=== PATIENT | male | born 1975 | race Caucasian/White ===

== ENCOUNTER 2019-12-21 14:07 | Emergency (ER) | payer OTHER ==
[2019-12-21] MEDS ORDERED: SODIUM CHLORIDE 0.9% 2,100 ML IV ONE (14:21)
[2019-12-21] MEDS ORDERED: BACITRACIN 0.9 GM PACKET OINTMENT TP ONE (14:30)
[2019-12-21] MEDS ORDERED: 0.9% SODIUM CHLORIDE 10 ML SYRINGE IVP PRN (14:30)
[2019-12-21] MEDS: PERTUSS(ACELL),DIPH,TET VAC/PF 0.5 ML VIAL IM ONE ×2 (14:42→15:12)
[2019-12-21 14:56] VITALS: BP 137/80
[2019-12-21] MEDS ORDERED: ACETAMINOPHEN 500 MG TABLET PO ONE (15:00)
[2019-12-21 15:40] LABS: BASOPHILS % (AUTO) 0.4 % (0.0-2.0); EOSINOPHILS % (AUTO) 0.4 % (1.0-6.0); HEMATOCRIT 44.2 % (41-53); HEMOGLOBIN 15.1 g/dL (13.5-17.5); LYMPHOCYTES # (AUTO) 1.2 K/uL (1.0-4.8); LYMPHOCYTES % (AUTO) 9.8 % (22.0-44.0); MEAN CORPUSCULAR HEMOGLOBIN 32.9 pg (26.0-34.0); MEAN CORPUSCULAR HGB CONC 34.2 G/dL (31.0-37.0); MEAN CORPUSCULAR VOLUME 96 fL (80-100); MONOCYTES # (AUTO) 0.9 K/uL (0.1-1.0); MONOCYTES % (AUTO) 7.5 % (2.0-9.0); NEUTROPHILS # (AUTO) 10.2 K/uL (1.8-7.7); NEUTROPHILS % (AUTO) 81.9 % (40.0-70.0); PLATELET COUNT (AUTO) 322 K/uL (150-450); RED CELL DISTRIBUTION WIDTH 13.2 % (11.5-14.5)
[2019-12-21 15:48] LABS: PROTHROMBIN TIME 10.5 SEC (9.4-11.6)
[2019-12-21 15:56] LABS: ANION GAP 10 mmol/L (8-16); CALCIUM, TOTAL 9.3 mg/dL (8.8-10.5); CARBON DIOXIDE 28 mmol/L (22-29); CHLORIDE 101 mmol/L (98-107); GLOMERULAR FILTR. RATE CALC > 60 mL/min (>60); GLUCOSE,RANDOM 107 mg/dL (70-110); POTASSIUM 4.1 mmol/L (3.5-5.1); SODIUM SERUM 139 mmol/L (136-145); UREA NITROGEN, BLOOD 12 mg/dL (7-18)
[2019-12-21 16:21] LABS: ALANINE AMINOTRANSFERASE 27 U/L (12-78); ALBUMIN 3.8 g/dL (3.4-5.0); ALKALINE PHOSPHATASE 167 U/L (46-116); ASPARTATE AMINOTRANSFERASE 28 U/L (15-37); BILIRUBIN,TOTAL 0.4 mg/dL (0.1-1.0); CREATINE KINASE, TOTAL ONLY 489 U/L (39-308); TOTAL PROTEIN, SERUM 9.4 g/dL (6.4-8.2)
[2019-12-21 16:25] LABS: B-TYPE NATRIURETIC PEPTIDE 19 pg/mL (0-100)
== END 2019-12-21 16:02 | disposition left against medical advice (07) ==
LOC: EMS 14:09
DX: R51 Headache (principal); R50.9 Fever, unspecified; F31.9 Bipolar disorder, unspecified; F20.9 Schizophrenia, unspecified; F17.210 Nicotine dependence, cigarettes, uncomplicated; Y04.2XXA Assault by strike against or bumped into by another person, initial encounter; Y93.89 Activity, other specified; Y92.89 Other specified places as the place of occurrence of the external cause; Y99.8 Other external cause status
CPT/HCPCS: 36415; 71045; 80053; 82550; 83605; 83880; 84145; 84484; 85025; 85610; 87040; 90715; 93005; 99291; G0480; J7030